=== PATIENT | female | born 1965 | race Caucasian/White ===

== ENCOUNTER → 2021-12-23 | Outpatient (REF) | payer OTHER ==
[~2021-12-23] MED LIST: ATEN25TA; BABY81CH; CELE20TA; GLUC500T; NEUR100C; NEUR300C; THERGRAN; TYLENOL #3; VALS40TA; XANA0.5T; amitriptyline; byetta; glucovance; lovaza; remeron
[2021-12-23 18:07] LABS: CREATININE, URINE 86.7 MG/DL; MALB URINE SIEMENS 16.8 MG/L; MAU/CREAT RATIO 19.3 MCG/MG (0.0-30.0)
== END ==
LOC: M LAB REF 16:48
PROVIDERS: ATTEND Nurse Practitioner Family
DX: E11.40 Type 2 diabetes mellitus with diabetic neuropathy, unspecified (principal)